=== PATIENT | female | born 1980 | race African-American/Black ===

== ENCOUNTER 2018-09-10 02:14 | Emergency (ER) | payer OTHER ==
[~2018-09-10] VITALS: Ht 149.9 cm; Wt 75.9 kg
[2018-09-10] MEDS ORDERED: CITA-106 PO (02:22)
[2018-09-10 02:41] LABS: APPEARANCE,URINE TURBID (CLEAR); GLUCOSE, URINE (UA) NEGATIVE (NEGATIVE); KETONES,URINE TRACE mg/dL (NEGATIVE); LEUKOCYTE ESTERASE ,URINE MODERATE (NEGATIVE); NITRATE,URINE NEGATIVE (NEGATIVE); OCCULT BLOOD,URINE LARGE (NEGATIVE); PROTEIN,URINE POS 1+ (NEGATIVE)
[2018-09-10 02:43] LABS: BILIRUBIN,URINE PRELIM. POSITIVE (NEGATIVE)
[2018-09-10 02:47] LABS: BACTERIA,URINE Few /HPF (None Seen); RBC,URINE 26-50 /HPF (0-2); SQUAMOUS EPITHELIAL CELL,UR Few /LPF (None Seen); WBC,URINE 51-100 /HPF (0-5)
[2018-09-10 02:49] VITALS: BP 135/96
[2018-09-10] MEDS ORDERED: SULFAMETHOX/TRIMETH DS 800-160 MG/TABLET PO ONE (03:00)
[2018-09-10] MEDS ORDERED: PHENAZOPYRIDINE HCL 100 MG TABLET PO ONE (03:00)
== END 2018-09-10 03:32 | disposition home or self-care (01) ==
LOC: EMS 02:18
DX: N39.0 Urinary tract infection, site not specified (principal); Z88.0 Allergy status to penicillin; Z88.1 Allergy status to other antibiotic agents
CPT/HCPCS: 87086

== ENCOUNTER 2021-02-06 19:27 | Emergency (ER) | payer OTHER ==
[~2021-02-06] VITALS: Ht 149.9 cm; Wt 81.8 kg
[~2021-02-06 19:27] MED LIST: CITA-144 PO
[2021-02-06 20:40] VITALS: BP 149/88
== END 2021-02-06 20:58 | disposition home or self-care (01) ==
LOC: EMS 19:39
DX: H60.91 Unspecified otitis externa, right ear (principal); Z88.0 Allergy status to penicillin; Z88.1 Allergy status to other antibiotic agents
CPT/HCPCS: 99283